=== PATIENT | male | born 1955 | race Caucasian/White ===

== ENCOUNTER 2017-12-09 12:39 | Outpatient (CLI) | payer BC ==
--- NOTE | 2017-12-09 14:48 | MRI ---
MRI LUMBAR SPINE PERFORMED WITHOUT CONTRAST ENHANCEMENT: Date: 12/09/17 HISTORY: Back pain with pain radiating down both legs. FINDINGS: The vertebral bodies maintain normal height. There are severe degenerative disc changes at L1-2, L2-3 , and L3-4. There is vacuum disc phenomenon at the L4-5 level with Grade I spondylolisthesis of appro ximately 8.0 mm. Degenerative disc narrowing and vacuum disc phenomenon also seen at L5-S1. There is scoliotic change to the spine also noted convex to the left. There is no significant periaortic adeno patria. Visualized portions of the kidneys are unremarkable. T12-L1: Degenerative facet changes without canal or foraminal stenosis. L1-2: There is some borderline canal narrowing. There is some posterior osteophytic change. There is modera te left foraminal stenosis. L2-3: The canal is mildly stenotic at this level. There is bilateral foraminal narrowing, slightly worse on the right. L3-4: Canal shows a mild degree of canal stenosis with prominent degenerative facet and ligamentous hypertr ophic change. There is fairly marked bilateral foraminal narrowing. L4-5: Degenerative facet changes and spondylolisthesis are present at this level with a moderately severe d egree of canal stenosis. There is also moderately severe right and very severe left foraminal narrowi ng. L5-S1: The canal is mildly stenotic. There is a disc bulge. Degenerative facet changes contribute to severe right and moderate left foraminal narrowing. IMPRESSION: Multilevel areas of canal and foraminal stenosis. POS: KATIE
== END 2017-12-09 12:40 | disposition home or self-care (01) ==
LOC: TBSIIMAG 12:39
PROVIDERS: ATTEND Neurological Surgery
DX: M54.16 Radiculopathy, lumbar region (principal); M48.061 Spinal stenosis, lumbar region without neurogenic claudication; M99.83 Other biomechanical lesions of lumbar region
CPT/HCPCS: 72148